=== PATIENT | female | born 1955 | race African-American/Black ===

== ENCOUNTER 2017-06-15 12:19 | Emergency (ER) | payer MEDICAID ==
[~2017-06-15] VITALS: Ht 144.8 cm; Wt 48.0 kg
[~2017-06-15 12:19] MED LIST: AMLO2.5T45 PO; ASPI-1159 PO; ATOR20TA65 PO; HYDR-3927 PO; LISI10TA5 PO; METO-396 PO; OMEP20TA2 PO; TAMS0.4C31 PO
[2017-06-15 12:56] VITALS: BP 147/73
[2017-06-15] MEDS ORDERED: DIAZEPAM 2 MG TABLET PO ONE (16:45)
== END 2017-06-15 17:56 | disposition home or self-care (01) ==
LOC: ER 12:19
DX: M62.838 Other muscle spasm (principal); M54.2 Cervicalgia; I10 Essential (primary) hypertension; Z79.82 Long term (current) use of aspirin; Z87.442 Personal history of urinary calculi
CPT/HCPCS: 99282; 99283

== ENCOUNTER 2017-07-17 11:02 | Day surgery (SDC) | payer MEDICAID ==
[~2017-07-17] VITALS: Ht 137.2 cm; Wt 45.8 kg
[2017-07-17 11:42] LABS: CLARITY URINE CLEAR (CLEAR); COLOR URINE YELLOW (YELLOW); KETONES URINE NEGATIVE (NEGATIVE); LEUKOCYTE ESTERASE URINE 2+ (NEGATIVE); NITRITE URINE NEGATIVE (NEGATIVE); OCCULT BLOOD URINE 1+ (NEGATIVE); PH URINE 6.5 (4.5-8.0); PROTEIN URINE 1+ (NEGATIVE); SPECIFIC GRAVITY URINE 1.015 (1.005-1.030); UROBILINOGEN URINE 0.2 E.U./dL (0.2-1.0)
[2017-07-17] MEDS ORDERED: SODIUM CHLORIDE 0.9% 1,000 ML IV SCH (12:30)
[2017-07-17] MEDS ORDERED: AMLO10TA80 PO (13:03)
[2017-07-17] MEDS ORDERED: AMLO2.5T45 PO (13:03)
[2017-07-17] MEDS ORDERED: DOCU250C87 PO (13:07)
[2017-07-17] MEDS ORDERED: RANI150T7 PO (13:07)
[2017-07-17] MEDS ORDERED: DIXL10 PO (13:07)
[2017-07-17] MEDS ORDERED: FERR325T6 PO (13:07)
[2017-07-17] MEDS ORDERED: NITR0.4T49 SL (13:08)
[2017-07-17] MEDS ORDERED: ALBU18HF2 IH (13:08)
[2017-07-17] MEDS ORDERED: FENTANYL CITRATE/PF 50MCG/ML 2ML VIAL ONE (13:51)
[2017-07-17] MEDS ORDERED: ROCURONIUM BROMIDE 10MG/ML VIAL 5ML IV ONE (13:51)
[2017-07-17] MEDS ORDERED: ONDANSETRON HCL 4MG/2ML VIAL ONE (13:52)
[2017-07-17] MEDS ORDERED: PROPOFOL 200MG/20ML VIAL IV ONE (13:52)
[2017-07-17] MEDS ORDERED: SUCCINYLCHOLINE CHLORIDE 200MG/10ML VIAL IV ONE (13:52)
[2017-07-17] MEDS ORDERED: GLYCOPYRROLATE 0.2 MG/ML 2ML VIAL ONE (13:52)
[2017-07-17] MEDS ORDERED: METOCLOPRAMIDE HCL 10MG/2ML VIAL ONE (13:52)
[2017-07-17] MEDS ORDERED: LIDOCAINE HCL/PF 1% 10 MG/ML 5ML VIAL ONE (13:52)
[2017-07-17] MEDS ORDERED: MIDAZOLAM HCL 2 MG/2 ML VIAL ONE (13:52)
[2017-07-17] MEDS ORDERED: GENTAMICIN SULF 40MG/ML 2ML VIAL ONE (14:20)
[2017-07-17] MEDS ORDERED: SODIUM CHLORIDE 0.9% 1,000 ML IV ONE (14:31)
[2017-07-17] MEDS ORDERED: ONDANSETRON HCL 4MG/2ML VIAL IV PRN (14:45)
[2017-07-17] MEDS ORDERED: HYDROMORPHONE HCL/PF 2MG/ML CPJ IV PRN (14:45)
[2017-07-17] MEDS ORDERED: MEPERIDINE HCL/PF 25MG/ML CPJ IV PRN (14:45)
== END 2017-07-17 16:00 | disposition home or self-care (01) ==
LOC: OR 11:02
PROVIDERS: ATTEND Urology
DX: T83.122A Displacement of indwelling ureteral stent, initial encounter (principal); K21.9 Gastro-esophageal reflux disease without esophagitis; I12.0 Hypertensive chronic kidney disease with stage 5 chronic kidney disease or end stage renal disease; N18.6 End stage renal disease; Z79.82 Long term (current) use of aspirin; D64.89 Other specified anemias; I25.10 Atherosclerotic heart disease of native coronary artery without angina pectoris; E78.4 Other hyperlipidemia; E78.00 Pure hypercholesterolemia, unspecified; B19.20 Unspecified viral hepatitis C without hepatic coma; Z87.891 Personal history of nicotine dependence; Z79.899 Other long term (current) drug therapy; Y83.1 Surgical operation with implant of artificial internal device as the cause of abnormal reaction of the patient, or of later complication, without mention of misadventure at the time of the procedure; Y92.89 Other specified places as the place of occurrence of the external cause
CPT/HCPCS: 52310; 74018; 81003; 88300; J0330; J1580; J2250; J2405; J2765; J3010; J3490; J7030; J2704

== ENCOUNTER 2018-10-03 08:37 | Day surgery (SDC) | payer MEDICAID ==
[~2018-10-03 08:37] MED LIST changes: +ALBU18HF2 IH; +AMLO10TA80 PO; -ASPI-1159 PO; +ASPI-1393 PO; +DIXL10 PO; +DOCU250C87 PO; +FERR325T6 PO; +NITR0.4T49 SL; +RANI150T7 PO
[2018-10-03] MEDS ORDERED: NICARDIPINE 100MCG/ML 10ML VIAL (CATH LAB) IV ONE (09:16)
[2018-10-03] MEDS ORDERED: NITROGLYCERIN 50MCG/ML 10ML VIAL (CATH LAB) IV ONE (09:16)
[2018-10-03] MEDS ORDERED: HEPARIN SODIUM 1,000 UNIT/1ML VIAL IV ONE (09:16)
[2018-10-03 09:31] LABS: HEMATOCRIT 42.3 % (36.0-48.0); HEMOGLOBIN 13.6 g/dL (12.0-16.0); MEAN CORPUSCULAR HEMOGLOBIN 24.9 pg (28.0-32.0); MEAN CORPUSCULAR VOLUME 77.2 fL (81.0-99.0); PLATELET 221 x1000/uL (130-400); RED BLOOD CELL COUNT 5.47 mill/uL (4.2-5.4); RED CELL DISTRIBUTION WIDTH 15.2 % (11.6-14.6)
[2018-10-03 09:48] LABS: INR 1.1
[2018-10-03] MEDS ORDERED: IOHEXOL-300 100 ML BOTTLE ONE (10:50)
[2018-10-03] MEDS ORDERED: LIDOCAINE HCL 1% 20ML VIAL (Pyxis) INJ ONE (10:51)
[2018-10-03] MEDS ORDERED: IODIXANOL 320MG/ML 100 ML BOTTLE IV ONE (10:54)
[2018-10-03] MEDS ORDERED: MIDAZOLAM HCL 2 MG/2 ML VIAL ONE (11:25)
[2018-10-03] MEDS ORDERED: FENTANYL CITRATE/PF 50MCG/ML 2ML VIAL ONE (11:26)
[2018-10-03] MEDS ORDERED: PROTAMINE SULFATE 10MG/ML VIAL 5ML IV ONE (11:46)
[2018-10-03] MEDS ORDERED: ACETAMINOPHEN 325MG TABLET PO PRN (12:15)
[2018-10-03] MEDS ORDERED: ONDANSETRON HCL 4MG/2ML INJ IV PRN (12:15)
[2018-10-03] MEDS ORDERED: ATROPINE SULFATE 1MG/10ML SYR IV PRN (12:15)
== END 2018-10-03 18:00 | disposition home or self-care (01) ==
LOC: CCL 08:37
PROVIDERS: ATTEND Specialist
DX: I70.201 Unspecified atherosclerosis of native arteries of extremities, right leg (principal); I65.21 Occlusion and stenosis of right carotid artery; Z79.899 Other long term (current) drug therapy; Z79.82 Long term (current) use of aspirin
CPT/HCPCS: 36215; 36415; 75710; 80048; 85027; 85610; C1725; C1760; C1769; C1893; J1644; J2250; J2720; J3010; J3490; Q9967; 36223

== ENCOUNTER 2019-01-16 13:12 | Emergency (ER) | payer MEDICAID ==
[~2019-01-16] VITALS: Ht 160 cm; Wt 54.0 kg
[~2019-01-16 13:12] MED LIST changes: -ALBU18HF2 IH; -AMLO2.5T45 PO; -DIXL10 PO; -DOCU250C87 PO; -FERR325T6 PO; -HYDR-3927 PO; -LISI10TA5 PO; -OMEP20TA2 PO; -TAMS0.4C31 PO
[2019-01-16 13:15] VITALS: BP 188/90
[2019-01-16] MEDS ORDERED: LIDOCAINE 1%/EPI 1:100,000 10 ML VIAL IJ ONE (15:15)
[2019-01-16] MEDS ORDERED: BACITRACIN ZINC OINT UDPKT TOP ONE (15:15)
[2019-01-16] MEDS ORDERED: ACETAMINOPHEN 500MG TABLET PO ONE (15:15)
[2019-01-16] MEDS ORDERED: BACITRACIN 15GM TUBE TOP NR (15:30)
[2019-01-16] MEDS ORDERED: LIDOCAINE HCL/EPINEPHRINE 1%-EPI 1:100,000 20 ML VIAL INFIL NR (15:45)
[2019-01-16] MEDS ORDERED: TETANUS, DIPHTHERIA, PERTUSSIS VAC/PF 0.5ML (>7YR OLD) IM ONE (18:45)
== END 2019-01-16 18:57 | disposition home or self-care (01) ==
LOC: ER 13:12
DX: S06.0X0A Concussion without loss of consciousness, initial encounter (principal); S01.111A Laceration without foreign body of right eyelid and periocular area, initial encounter; M54.2 Cervicalgia; Y93.01 Activity, walking, marching and hiking; W01.198A Fall on same level from slipping, tripping and stumbling with subsequent striking against other object, initial encounter; Y92.481 Parking lot as the place of occurrence of the external cause; I12.9 Hypertensive chronic kidney disease with stage 1 through stage 4 chronic kidney disease, or unspecified chronic kidney disease; N18.9 Chronic kidney disease, unspecified; Z23 Encounter for immunization
CPT/HCPCS: 70450; 90471; 90715; 99284; J3490

== ENCOUNTER 2019-01-23 12:06 | Emergency (ER) | payer MEDICAID ==
[~2019-01-23] VITALS: Ht 144.8 cm; Wt 54.0 kg
[2019-01-23 12:13] VITALS: BP 169/88
== END 2019-01-23 13:52 | disposition home or self-care (01) ==
LOC: ER 12:06
DX: Z48.02 Encounter for removal of sutures (principal); H10.9 Unspecified conjunctivitis
CPT/HCPCS: 99283

== ENCOUNTER → 2021-08-06 | Day surgery (SDC) | payer MEDICARE, MEDICAID ==
[~2021-08-06] VITALS: Ht 144.8 cm; Wt 49.0 kg
[~2021-08-06] MED LIST changes: -ASPI-1393 PO; +ASPI-1497 PO; +DEXAMETHASONE 4MG/ML 1ML VIAL ONE; +FENTANYL CITRATE/PF 50MCG/ML 2ML VIAL ONE; +GLYCOPYRROLATE 0.2 MG/ML 2ML VIAL ONE; +HYDROCODONE/ACETAMINOPHEN 10/325MG TABLET PO PRN; +HYDROMORPHONE HCL/PF 2MG/ML CPJ IV PRN; +IOPAMIDOL 10 ML VIAL IT ONE; +IOPAMIDOL 61% 300/15 ML VIAL IT ONE; +LABETALOL 5MG/ML SYR 20 MG/4 ML SYRINGE IV PRN; +LACTATED RINGERS 1,000 ML IV SCH; +LIDOCAINE HCL 1% 20ML VIAL (Pyxis) INJ ONE; +MEPERIDINE HCL/PF 25MG/ML CPJ IV PRN; +MIDAZOLAM HCL 2 MG/2 ML VIAL ONE; +NALOXONE HCL 0.4MG/ML VIAL IV PRN; +ONDANSETRON HCL 4MG/2ML INJ IV PRN; +ONDANSETRON HCL 4MG/2ML INJ ONE; +PROPOFOL 200MG/20ML VIAL IV ONE
[2021-08-06 10:13] LABS: HEMATOCRIT 38.3 % (36.0-48.0); HEMOGLOBIN 12.5 g/dL (12.0-16.0)
== END | disposition home or self-care (01) ==
LOC: OR 07-28 05:46
PROVIDERS: ATTEND Urology
DX: N20.0 Calculus of kidney (principal); I12.9 Hypertensive chronic kidney disease with stage 1 through stage 4 chronic kidney disease, or unspecified chronic kidney disease; N18.30 Chronic kidney disease, stage 3 unspecified; E78.00 Pure hypercholesterolemia, unspecified; Z79.899 Other long term (current) drug therapy; Z98.890 Other specified postprocedural states; Z20.822 Contact with and (suspected) exposure to COVID-19; Z79.82 Long term (current) use of aspirin; Z87.891 Personal history of nicotine dependence
CPT/HCPCS: 36415; 50590; 52332; 85014; 85018; 87426; C2617; J1100; J2250; J2405; J2704; J3010; J3490; Q9967; Q9966

== ENCOUNTER 2023-12-30 13:26 | Emergency (ER) | payer MEDICARE, OTHER ==
[~2023-12-30] VITALS: Ht 162.6 cm; Wt 60.0 kg
[~2023-12-30 13:26] MED LIST changes: -DEXAMETHASONE 4MG/ML 1ML VIAL ONE; -FENTANYL CITRATE/PF 50MCG/ML 2ML VIAL ONE; -GLYCOPYRROLATE 0.2 MG/ML 2ML VIAL ONE; -HYDROCODONE/ACETAMINOPHEN 10/325MG TABLET PO PRN; -HYDROMORPHONE HCL/PF 2MG/ML CPJ IV PRN; -IOPAMIDOL 10 ML VIAL IT ONE; -IOPAMIDOL 61% 300/15 ML VIAL IT ONE; -LABETALOL 5MG/ML SYR 20 MG/4 ML SYRINGE IV PRN; -LACTATED RINGERS 1,000 ML IV SCH; -LIDOCAINE HCL 1% 20ML VIAL (Pyxis) INJ ONE; -MEPERIDINE HCL/PF 25MG/ML CPJ IV PRN; -MIDAZOLAM HCL 2 MG/2 ML VIAL ONE; -NALOXONE HCL 0.4MG/ML VIAL IV PRN; -ONDANSETRON HCL 4MG/2ML INJ IV PRN; -ONDANSETRON HCL 4MG/2ML INJ ONE; -PROPOFOL 200MG/20ML VIAL IV ONE; -RANI150T7 PO
[2023-12-30 13:35] VITALS: O2SAT 98
[2023-12-30 14:18] LABS: POTASSIUM 3.6 mEq/L (3.5-5.1)
[2023-12-30 14:19] LABS: CALCIUM 9.7 mg/dL (8.7-10.4)
[2023-12-30 14:20] LABS: BASOPHILS % 0.9 % (0.0-2.0); DIFFERENTIAL COMMENT 0; EOSINOPHILS % 2.4 % (0.0-5.0); HEMATOCRIT. 38.9 % (36.0-48.0); HEMOGLOBIN. 12.4 g/dL (12.0-16.0); LYMPHOCYTES % 27.3 % (20.0-50.0); MEAN CORPUSCULAR HEMOGLOBIN 23.6 pg (28.0-32.0); MEAN CORPUSCULAR HGB CONC 31.7 g/dL (31.0-37.0); MEAN CORPUSCULAR VOLUME 74.3 fL (81.0-99.0); MEAN PLATELET VOLUME 8.6 fl (7.4-10.4); MONOCYTES % 12.1 % (2.0-8.0); NEUTROPHILS % 57.3 % (40.0-76.0); PLATELET 277 x1000/uL (130-400); RED BLOOD CELL COUNT 5.24 mill/uL (4.2-5.4); RED CELL DISTRIBUTION WIDTH 15.9 % (11.6-14.6); WHITE BLOOD COUNT 5.8 x1000/uL (4.5-11.0)
[2023-12-30 14:24] LABS: CREATININE 1.8 mg/dL (0.6-1.0)
[2023-12-30 14:59] LABS: CLARITY URINE CLEAR (CLEAR); COLOR URINE YELLOW (YELLOW); GLUCOSE URINE NEGATIVE (NEGATIVE); KETONES URINE NEGATIVE (NEGATIVE); LEUKOCYTE ESTERASE URINE NEGATIVE (NEGATIVE); NITRITE URINE NEGATIVE (NEGATIVE); OCCULT BLOOD URINE 1+ (NEGATIVE); PROTEIN URINE 3+ (NEGATIVE); SPECIFIC GRAVITY URINE 1.013 (1.005-1.030); UROBILINOGEN URINE 0.2 E.U./dL (0.2-1.0)
[2023-12-30 15:13] LABS: SQUAMOUS EPITHELIAL CELL URINE RARE /lpf (RARE/1+)
[2023-12-30 15:14] LABS: RBC URINE 0-2 /hpf (0-2); WBC URINE 0-2 /hpf (0-2)
[2023-12-30 15:15] LABS: BACTERIA URINE NONE SEEN
[2023-12-30 17:25] VITALS: BP 154/88; PULSE 98; RESP 18; TEMP 36.72516; O2SAT 98
== END 2023-12-30 17:27 | disposition home or self-care (01) ==
LOC: ER 13:26
DX: M25.472 Effusion, left ankle (principal); N28.9 Disorder of kidney and ureter, unspecified; E78.00 Pure hypercholesterolemia, unspecified; I10 Essential (primary) hypertension; Z79.899 Other long term (current) drug therapy; Z79.82 Long term (current) use of aspirin
CPT/HCPCS: 36415; 73610; 80048; 81003; 85025; 93971; 99284

== ENCOUNTER → 2024-09-19 | Outpatient (CLI) | payer MEDICARE, MEDICAID ==
[~2024-09-19] VITALS: Ht 144.8 cm; Wt 52.2 kg
[~2024-09-19] MED LIST changes: -AMLO10TA80 PO; +CARV6.2548 PO; +FUROSEMIDE 20MG/2ML VIAL ONE; +HYDR-4001 MT; +HYDR25TA78 PO; +ISOS30TA12 PO; -METO-396 PO; -NITR0.4T49 SL; +POTA10CA93 PO; +SACU1TAB MT
[2024-09-19] MEDS: FUROSEMIDE 20MG/2ML VIAL IVP NR (10:27)
== END | disposition home or self-care (01) ==
LOC: NM 09:32
PROVIDERS: ATTEND Urology
DX: N13.30 Unspecified hydronephrosis (principal); N26.1 Atrophy of kidney (terminal); N28.89 Other specified disorders of kidney and ureter
CPT/HCPCS: 78707; A9562; J1940